=== PATIENT | male | born 1985 | race Caucasian/White ===

== ENCOUNTER 2021-02-19 15:14 | Emergency (ER) | payer OTHER ==
[~2021-02-19] VITALS: Ht 177.8 cm; Wt 84.8 kg
[~2021-02-19 15:14] MED LIST: CARV12.5 PO; FAMO-90 PO; FOLI1TAB19 PO; FURO-572 PO; PRAS10TA2 PO
--- NOTE | 2021-02-19 15:47 | NUR ---
CALLED PT NAME IN LOBBY, NO RESPONSE
--- NOTE | 2021-02-19 15:52 | NUR ---
CALLED PT NAME IN LOBBY, NO RESPONSE OR PRESENT
[2021-02-19 16:14] VITALS: BP 132/82
[2021-02-19] MEDS ORDERED: MORPHINE SULFATE 2 MG/ML SYR IVP ONE (16:45)
[2021-02-19] MEDS ORDERED: ONDANSETRON 4 MG/2 ML VIAL IVP ONE (16:50)
[2021-02-19 16:55] LABS: BASOPHILS # (AUTO) 0.1 K/uL (0.00-0.22); BASOPHILS % (AUTO) 1.1 % (0.0-2.0); EOSINOPHILS # (AUTO) 0.2 K/uL (0-0.4); EOSINOPHILS % (AUTO) 2.7 % (0.0-4.0); HEMATOCRIT 41.4 % (36-52); HEMOGLOBIN 13.9 g/dL (12.0-18.0); LYMPHOCYTES # (AUTO) 2.3 K/uL (2.0-11.5); LYMPHOCYTES % (AUTO) 33.6 % (20.5-51.1); MEAN CORPUSCULAR HEMOGLOBIN 31 pg (27-31); MEAN CORPUSCULAR HGB CONC 34 g/dL (33-37); MEAN CORPUSCULAR VOLUME 92.1 fL (80-94); MONOCYTES # (AUTO) 0.5 K/uL (0.8-1.0); MONOCYTES % (AUTO) 7.1 % (1.7-9.3); NEUTROPHILS # (AUTO) 3.8 K/uL (1.8-7.7); NEUTROPHILS % (AUTO) 55.5 % (42.2-75.2); PLATELET COUNT (AUTO) 422 K/uL (140-450); RED BLOOD CELL COUNT(AUTO) 4.49 MIL/uL (4.20-6.10); WHITE BLOOD COUNT (AUTO) 6.8 K/uL (4.8-10.8)
--- NOTE | 2021-02-19 17:08 | NUR ---
35 Y/O M BIB SELF FROM HOME, C/O ABD PAIN, N/V/D 8/10 DULL PAIN FOR X3 DAYS. PT STATES HE ALSO HAS A LIST OF MEDICATIONS HE NEEDS REFILLED. NO PCP. AAOX4. VSS. PMH: 2 STENTS, PANCREATITIS, CHF NKA
[2021-02-19 17:11] LABS: ALBUMIN 3.8 g/dL (3.4-5.0); ANION GAP 15.9 (8-16); CARBON DIOXIDE 22.6 mmol/L (21-32); POTASSIUM 3.5 mmol/L (3.5-5.1); TOTAL BILIRUBIN 0.5 mg/dL (0.0-1.0)
[2021-02-19] MEDS ORDERED: APIX5TAB PO (17:24)
[2021-02-19] MEDS ORDERED: METF-1022 PO (17:24)
[2021-02-19] MEDS ORDERED: ACET-10509 PO (17:24)
[2021-02-19] MEDS ORDERED: CARV3.12 PO (17:24)
[2021-02-19] MEDS ORDERED: LISI2.5T12 PO (17:24)
[2021-02-19] MEDS ORDERED: ATOR40TA PO (17:24)
--- NOTE | 2021-02-19 17:52 | NUR ---
IV removed, catheter intact and site benign. Applied folded 4x4 gauze and tape to stop bleeding.
[2021-02-19 17:57] VITALS: BP 120/77
--- NOTE | 2021-02-19 17:57 | NUR ---
Patient discharged with v/s stable. Written and verbal after care instructions given and explained. Patient alert, oriented and verbalized understanding of instructions. Ambulatory with steady gait. All questions addressed prior to discharge. ID band removed. Patient advised to follow up with PMD. Rx of Tylenol extra strength tab, eliquis, lipitor, coreg, zestril, metformin hcl given. Patient educated on indication of medication including possible reaction and side effects. Opportunity to ask questions provided and answered.
== END 2021-02-19 17:57 | disposition home or self-care (01) ==
LOC: MED 15:14
DX: K29.70 Gastritis, unspecified, without bleeding (principal); Z76.0 Encounter for issue of repeat prescription; Z79.899 Other long term (current) drug therapy; Z98.890 Other specified postprocedural states
CPT/HCPCS: 36415; 80053; 83690; 85025; 96374; 96375; 99284; J2270; J2405

== ENCOUNTER 2021-03-13 21:05 | Emergency (ER) | payer MEDICAID, OTHER ==
[~2021-03-13] VITALS: Ht 177.8 cm; Wt 86.2 kg
[~2021-03-13 21:05] MED LIST changes: +ACET-10509 PO; +APIX5TAB PO; +ATOR40TA PO; +CARV3.12 PO; +LISI2.5T12 PO; +METF-1022 PO
[2021-03-13 21:15] VITALS: BP 124/72
--- NOTE | 2021-03-13 21:15 | NUR ---
TO LOBBY A/W BED AMBULATORY
--- NOTE | 2021-03-13 21:39 | NUR ---
AMBULATED TO BED #4
[2021-03-13 22:05] VITALS: BP 112/81
--- NOTE | 2021-03-13 22:10 | NUR ---
PT REPORTS THAT HE IS HAVING A FAMILY EMERGENCY AND WISHES TO LEAVE AT THIS TIME. IV REMOVED, CATHETER INTACT. GAUZE TO SITE TO CONTROL BLEEDING.
== END 2021-03-13 22:10 | disposition left against medical advice (07) ==
LOC: MED 21:05
DX: R07.9 Chest pain, unspecified (principal); Z79.899 Other long term (current) drug therapy
CPT/HCPCS: 93005; 99283

== ENCOUNTER 2021-03-16 03:25 | Emergency (ER) | payer MEDICAID ==
--- NOTE | 2021-03-16 04:00 | NUR ---
called to triage, no answer
--- NOTE | 2021-03-16 04:27 | NUR ---
CALLED TO TRIAGE, NO ANSWER
--- NOTE | 2021-03-16 04:57 | NUR ---
CALLED TO TRIAGE X 3, NO ANSWER [facility]BS
== END 2021-03-16 04:00 | disposition left against medical advice (07) ==
LOC: MED 03:25
DX: R10.33 Periumbilical pain (principal); I50.9 Heart failure, unspecified; Z79.899 Other long term (current) drug therapy
CPT/HCPCS: 99281